=== PATIENT | female | born 1970 | race Caucasian/White ===

== ENCOUNTER 2020-08-07 01:27 | Emergency (ER) | payer OTHER ==
[2020-08-07] MEDS ORDERED: LOTRISONE CREAM15 GM TP (02:57)
[2020-08-07 03:04] LABS: HEMOGLOBIN 12.6 gm/dl (12.3-15.3); RED BLOOD COUNT 4.49 M/UL (4.00-5.10); WHITE BLOOD COUNT 8.5 K/UL (4.5-11.0)
== END 2020-08-07 04:05 | disposition home or self-care (01) ==
LOC: ER1 01:27
PROVIDERS: Physician Assistant
DX: R21 Rash and other nonspecific skin eruption (principal); F17.210 Nicotine dependence, cigarettes, uncomplicated; Z88.0 Allergy status to penicillin
CPT/HCPCS: 80053; 85025; 85652; 86140; 99284